=== PATIENT | female | born 1985 | race Caucasian/White ===

== ENCOUNTER 2016-09-13 09:09 | Emergency (ER) | payer BC ==
[~2016-09-13] VITALS: Wt 72.0 kg
[~2016-09-13 09:09] MED LIST: AZIT250T94 PO; BIRTH CONTROL PO; MED4DP PO
--- NOTE | 2016-09-13 11:26 | ERD ---
ER Documentation Chief Complaint Date/Time DATE: 09/13/16 TIME: 11:25 Chief Complaint RUNNY NOSE COUGH X 1 WEEK HPI This is a 30-year-old female presents to the emergency room with her mother for evaluation of a nasal congestion, and a cough productive of green sputum for 1 weeks duration. This patient states that she has had similar symptoms in the past which have been treated with steroids and antibiotics. The patient came to the ER today for evaluation. ROS All systems reviewed and are negative except as per history of present illness. Medications Home Meds Active Scripts Methylprednisolone* (Medrol* DOSE PACK) 4 Mg/Dose-Pack Tab.ds.pk, 4 MG PO . DIRECTED for 7 Days, PACKET Prov:SUBHASH CA PICK UP DRIVER 09/15/15 Azithromycin* (Zithromax*) 250 Mg Tablet, 250 MG PO .ZPACK DIRECTED, #6 TAB TAKE 500 MG (2 TABS) THE FIRST DAY THEN 250 MG (1 TAB) DAYS 2-5 Prov:SUBHASH CA PICK UP DRIVER 09/15/15 Reported Medications [ Control] No Conflict Check, PO 06/04/15 Allergies Allergies: Coded Allergies: No Known Drug Allergy (Verified Allergy, Mild, 09/15/15) PMhx/Soc Medical and Surgical Hx: pt denies Surgical Hx History of Surgery: No Anesthesia Reaction: No Hx Neurological Disorder: No Hx Respiratory Disorders: No Hx Cardiac Disorders: No Hx Psychiatric Problems: No Hx Miscellaneous Medical Probl: Yes (GASTRITIS ) Hx Alcohol Use: Yes (OCCASIONAL) Hx Substance Use: No Hx Tobacco Use: Yes (every few months ) Smoking Status: Light tobacco smoker Physical Exam Vitals Vital Signs Date Time Temp Pulse Resp B/P Pulse Ox O2 Delivery O2 Flow Rate FiO2 09/13/16 09:13 98.0 80 18 134/79 99 Physical Exam Const: No acute distress Head: Atraumatic Eyes: Normal Conjunctiva ENT: Bilateral nasal congestion normal External Ears, Nose and Mouth. Neck: Full range of motion..~ No meningismus. Resp: Clear to auscultation bilaterally Cardio: Regular rate and rhythm, no murmurs Abd: Soft, non tender, non distended. Normal bowel sounds Skin: No petechiae or rashes Back: No midline or flank tenderness Ext: No cyanosis, or edema Neur: Awake and alert Psych: Normal Mood and Affect Procedures/MDM This 30-year-old female presents to the ER for evaluation of bilateral nasal congestion, and a cough productive of green sputum. She states that she has had these symptoms previously last year and they were treated with antibiotics and the prednisone. I do feel the symptoms are viral in nature with only a slight risk of bacterial cause. I advised this patient I will give her a Medrol Dosepak, and a prescription for azithromycin however I instructed her not to fill the azithromycin until 48 hours this past and she has had her symptoms for greater than 7 days. The patient verbalized understanding and is okay the plan of care. Departure Diagnosis: Primary Impression: Acute bronchitis Condition: Stable SINDHU SMITH DO Sep 13, 2016 11:26
[2016-09-13] MEDS ORDERED: MED4DP PO (11:28)
[2016-09-13] MEDS ORDERED: AZIT250T94 PO (11:28)
== END 2016-09-13 11:43 | disposition home or self-care (01) ==
LOC: FTE 09:09
DX: J20.9 Acute bronchitis, unspecified (principal); F17.210 Nicotine dependence, cigarettes, uncomplicated
CPT/HCPCS: 99284

== ENCOUNTER 2016-12-06 12:41 | Emergency (ER) | payer BC ==
[~2016-12-06] VITALS: Ht 162.6 cm; Wt 88.0 kg
[2016-12-06 12:43] VITALS: Ht 162.6 cm; Wt 88.0 kg
[2016-12-06] MEDS ORDERED: ELEC100080 PO (14:55)
[2016-12-06] MEDS ORDERED: ONDA4TAB8 PO (14:55)
[2016-12-06] MEDS ORDERED: DICY10CA60 PO (14:56)
[2016-12-06] MEDS ORDERED: LOPE2CAP PO (14:56)
--- NOTE | 2016-12-06 15:05 | ERD ---
ER Documentation Chief Complaint Date/Time DATE: 12/06/16 TIME: 15:01 Chief Complaint vomiting /diarrhea , abd pain x 3 days HPI This a 31-year-old female who presents to the emergency department today complaining of vomiting and diarrhea for the past 3 days. States she has some crampy abdominal pain. States that she is drinking fluids but not eating much food other than crackers. States that her symptoms have improved in the last day. States she has a history of gastritis. States that she has had some blood on her poop when she wipes however she has a history of hemorrhoids. States that 2 weeks ago she had a stool culture done and has had testing done for H. pylori.. States she is also had an endoscopy and colonoscopy. She is not taking any medication for the vomiting or diarrhea. Denies any fevers or chills. ROS All systems reviewed and are negative except as per history of present illness. Medications Home Meds Active Scripts Loperamide Hcl* (Imodium*) 2 Mg Capsule, 2 MG PO .AFTER EA LOOSE BM Y for DIARRHEA, #8 TAB Prov:DEVENDRA UMANZOR PA-C 12/06/16 Dicyclomine Hcl* (Bentyl*) 10 Mg Capsule, 10 MG PO QID, #30 CAP Prov:DEVENDRA UMANZOR PA-C 12/06/16 Electrolyte,Oral (Pedialyte) 1,000 Ml Solution, 100 ML PO Q6 Y for DIARRHEA, # 1000 ML Prov:DEVENDRA UMANZOR PA-C 12/06/16 Ondansetron Hcl* (Zofran*) 4 Mg Tablet, 4 MG PO Q6H for NAUSEA AND/OR VOMITING, #30 TAB Prov:DEVENDRA UMANZOR PA-C 12/06/16 Azithromycin* (Zithromax*) 250 Mg Tablet, 250 MG PO DAILY for 5 Days, #6 TAB Prov:SINDHU SMITH DO 09/13/16 Methylprednisolone* (Medrol* DOSE PACK) 4 Mg/Dose-Pack Tab.ds.pk, 4 MG PO . DIRECTED for 7 Days, PACKET Prov:SINDHU SMITH DO 09/13/16 Methylprednisolone* (Medrol* DOSE PACK) 4 Mg/Dose-Pack Tab.ds.pk, 4 MG PO . DIRECTED for 7 Days, PACKET Prov:SUBHASH CA NP 09/15/15 Azithromycin* (Zithromax*) 250 Mg Tablet, 250 MG PO .ShannonPACK DIRECTED, #6 TAB TAKE 500 MG (2 TABS) THE FIRST DAY THEN 250 MG (1 TAB) DAYS 2-5 Prov:SUBHASH CA NP 09/15/15 Reported Medications [ Control] No Conflict Check, PO 06/04/15 Allergies Allergies: Coded Allergies: No Known Drug Allergy (Verified Allergy, Mild, 09/15/15) PMhx/Soc History of Surgery: No Anesthesia Reaction: No Hx Neurological Disorder: No Hx Respiratory Disorders: No Hx Cardiac Disorders: No Hx Psychiatric Problems: No Hx Miscellaneous Medical Probl: Yes (GASTRITIS ) Hx Alcohol Use: No Hx Substance Use: No Hx Tobacco Use: No Smoking Status: Never smoker Physical Exam Vitals Vital Signs Date Time Temp Pulse Resp B/P Pulse Ox O2 Delivery O2 Flow Rate FiO2 12/06/16 12:43 99.1 90 16 141/74 98 Physical Exam Const: Pleasant, nontoxic-appearing Head: Atraumatic Eyes: Normal Conjunctiva ENT: Normal External Ears, Nose and Mouth. Neck: Full range of motion..~ No meningismus. Resp: Clear to auscultation bilaterally Cardio: Regular rate and rhythm, no murmurs Abd: Soft, periumbilical tenderness, non distended. Normal bowel sounds. No right lower quadrant pain. No tenderness McBurney's. No left lower quadrant pain. Skin: No petechiae or rashes Neur: Awake and alert Psych: Normal Mood and Affect Procedures/MDM This a 31-year-old female who presents to the emergency department today complaining of vomiting and diarrhea and crampy abdominal pain for the last 3 days. Patient indicates that her symptoms are improving since yesterday. On physical exam patient has no lower abdominal pain. Her tenderness appears to be more in the periumbilical region. I do not feel the patient requires laboratory workup or imaging at this time. Patient did indicate that she has some blood in her poop when she wipes but she does have a history of hemorrhoids. Patient is afebrile and otherwise well-appearing. She is also able to tolerate some oral fluids at this time. She has had no recent travel and have low suspicion for bacterial cause of diarrhea or vomiting. Low suspicion for acute surgical abdomen. Low suspicion for diverticulitis, upper or lower GI bleed. Patient's vital signs are stable and she sitting up in the chair in no acute distress Patient symptoms at this time is consistent with vomiting and diarrhea. Patient was given a prescription for Zofran for home, Bentyl and Pedialyte. I did also give the patient a very short course of Imodium for home however I explained to her that given her history of hemorrhoids and likely constipation I would prefer that she does not take it and only use as needed. Patient was in full understanding. At this time the patient is stable for discharge and outpatient management. Patient should follow up with their PCP in the next 1-2 days. They may return to the emergency department sooner for any persistent or worsening of symptoms. Patient understood and agreed with the plan. Departure Diagnosis: Primary Impression: Vomiting and diarrhea Condition: Fair Patient Instructions: Self-Care for Vomiting and Diarrhea Referrals: your PCP Additional Instructions: Call your primary care doctor TOMORROW for an appointment during the next 1-2 days.See the doctor sooner or return here if your condition worsens before your appointment time. Take Zofran for nausea or vomiting Take Bentyl for diarrhea Take Pedialyte for diarrhea and vomiting and drink plenty of clear fluids Take Imodium only as absolutely needed for diarrhea DEVENDRA UMANZOR PA-C December 06, 2016 15:05
[2016-12-06 15:27] VITALS: BP 131/83; PULSE 93; RESP 16; TEMP 99.3
== END 2016-12-06 15:29 | disposition home or self-care (01) ==
LOC: FTE 12:41
DX: R11.10 Vomiting, unspecified (principal); R19.7 Diarrhea, unspecified
CPT/HCPCS: 99284

== ENCOUNTER 2017-06-17 12:30 | Emergency (ER) | payer BC ==
[~2017-06-17] VITALS: Wt 88.1 kg
[~2017-06-17 12:30] MED LIST changes: +DICY10CA60 PO; +ELEC100080 PO; +LOPE2CAP PO; +ONDA4TAB8 PO
[2017-06-17] MEDS ORDERED: CETI10CA PO (13:34)
[2017-06-17] MEDS ORDERED: FLUT9.9S NASAL (13:34)
[2017-06-17] MEDS ORDERED: GUAI1TBM PO (13:35)
--- NOTE | 2017-06-17 13:41 | ERD ---
ER Documentation Chief Complaint Chief Complaint nasal congestion/cough [id number] HPI This is a 31-year-old female presents the emergency department today complaining of nasal congestion and scratchy throat for the past couple of weeks. Patient states she has also had a cough. States that she does not think that she needs antibiotics. States that she has used a pill and a nasal brain in the past that helped her. Denies any fevers or chills. ROS All systems reviewed and are negative except as per history of present illness. Medications Home Meds Active Scripts Guaifenesin/Dextromethorphan (Mucinex Dm ER 1,200-60 mg Tab) 1 Each Tbmp.12hr, 1 EACH PO BID, #20 TAB Prov:DEVENDRA UMANZOR PA-C 06/17/17 Fluticasone Propionate (Flonase Allergy Relief) 9.9 Ml [place].susp, 2 SPRAY NASAL DAILY, #1 BOTTLE TO EACH NOSTRIL Prov:DEVENDRA UMANZOR PA-C 06/17/17 Cetirizine Hcl* (Zyrtec*) 10 Mg Capsule, 10 MG PO DAILY, #14 TAB.CHEW Prov:DEVENDRA UMANZOR PA-C 06/17/17 Loperamide Hcl* (Imodium*) 2 Mg Capsule, 2 MG PO .AFTER EA LOOSE BM Y for DIARRHEA, #8 TAB Prov:DEVENDRA UMANZOR PA-C 12/06/16 Dicyclomine Hcl* (Bentyl*) 10 Mg Capsule, 10 MG PO QID, #30 CAP Prov:DEVENDRA UMANZOR PA-C 12/06/16 Electrolyte,Oral (Pedialyte) 1,000 Ml Solution, 100 ML PO Q6 Y for DIARRHEA, # 1000 ML Prov:DEVENDRA UMANZOR PA-C 12/06/16 Ondansetron Hcl* (Zofran*) 4 Mg Tablet, 4 MG PO Q6H for NAUSEA AND/OR VOMITING, #30 TAB Prov:DEVENDRA UMANZOR PA-C 12/06/16 Azithromycin* (Zithromax*) 250 Mg Tablet, 250 MG PO DAILY for 5 Days, #6 TAB Prov:SINDHU SMITH DO 09/13/16 Methylprednisolone* (Medrol* DOSE PACK) 4 Mg/Dose-Pack Tab.ds.pk, 4 MG PO . DIRECTED for 7 Days, PACKET Prov:SINDHU SMITH DO 09/13/16 Methylprednisolone* (Medrol* DOSE PACK) 4 Mg/Dose-Pack Tab.ds.pk, 4 MG PO . DIRECTED for 7 Days, PACKET Prov:SUBHASH CA CUSTODIAL ENGINEER 09/15/15 Azithromycin* (Zithromax*) 250 Mg Tablet, 250 MG PO .ZPACK DIRECTED, #6 TAB TAKE 500 MG (2 TABS) THE FIRST DAY THEN 250 MG (1 TAB) DAYS 2-5 Prov:SUBHASH CA CUSTODIAL ENGINEER 09/15/15 Reported Medications [ Control] No Conflict Check, PO 06/04/15 Allergies Allergies: Coded Allergies: No Known Drug Allergy (Verified Allergy, Mild, 09/15/15) PMhx/Soc History of Surgery: No Anesthesia Reaction: No Hx Neurological Disorder: No Hx Respiratory Disorders: No Hx Cardiac Disorders: No Hx Psychiatric Problems: No Hx Miscellaneous Medical Probl: Yes (GASTRITIS ) Hx Alcohol Use: No Hx Substance Use: No Hx Tobacco Use: No Physical Exam Vitals Vital Signs Date Time Temp Pulse Resp B/P Pulse Ox O2 Delivery O2 Flow Rate FiO2 06/17/17 12:38 98.8 98 12 125/76 100 Physical Exam Const: NAD Head: Atraumatic Eyes: Normal Conjunctiva ENT: Ears TMs normal nose no drainage. Throat with mild erythema drainage posterior pharynx Neck: Full range of motion..~ No meningismus. Resp: Clear to auscultation bilaterally. No absent breath sounds. No wheezing. Cardio: Regular rate and rhythm, no murmurs Abd: Soft, non tender, non distended. Normal bowel sounds Skin: No petechiae or rashes Back: No midline or flank tenderness Ext: No cyanosis, or edema Neur: Awake and alert Psych: Normal Mood and Affect Procedures/MDM This a 31-year-old female who presents the emergency department today complaining of signs and symptoms consistent with allergic rhinitis versus viral URI. Patient is afebrile and otherwise well-appearing. Her oxygen saturation is 100%. Do not feel that she requires a chest x-ray or further workup at this time. Low suspicion for pneumonia, PE, abscess, pleural effusion , pneumothorax, sinusitis, sepsis, severe acute bacterial infection Patient was given a prescription for Mucinex DM, Flonase, Zyrtec and nasal saline. At this time the patient is stable for discharge and outpatient management. Patient should follow up with their PCP in the next 1-2 days. They may return to the emergency department sooner for any persistent or worsening of symptoms. Patient understood and agreed with the plan. Departure Diagnosis: Primary Impression: Allergic rhinitis Chronicity: unspecified Allergic rhinitis trigger: unspecified Allergic rhinitis seasonality: unspecified seasonality Qualified Code: J30.9 - Allergic rhinitis, unspecified chronicity, unspecified seasonality, unspecified trigger Additional Impression: Cough Condition: Fair Patient Instructions: Preventing Common Respiratory Infections, Allergic Rhinitis Referrals: your PCP Additional Instructions: Call your primary care doctor TOMORROW for an appointment during the next 1-2 days.See the doctor sooner or return here if your condition worsens before your appointment time. Take Mucinex for cough and congestion. Take Flonase and Zyrtec as prescribed for allergy related symptoms. drink plenty of fluids and keep the head of your bed elevated. DEVENDRA UMANZOR PA-C Jun 17, 2017 13:41
[2017-06-17] MEDS ORDERED: SODI126M NASAL (13:42)
[2017-06-17 13:56] VITALS: BP 120/68; PULSE 65; RESP 16
== END 2017-06-17 13:57 | disposition home or self-care (01) ==
LOC: FTE 12:30
DX: J30.9 Allergic rhinitis, unspecified (principal)
CPT/HCPCS: 99283

== ENCOUNTER 2017-08-29 07:26 | Emergency (ER) | END 2017-08-29 09:05 | disposition home or self-care (01) ==

== ENCOUNTER 2017-09-04 19:40 | Emergency (ER) | END 2017-09-05 02:29 | disposition home or self-care (01) ==

== ENCOUNTER 2017-10-17 12:19 | Emergency (ER) | END 2017-10-17 13:42 | disposition home or self-care (01) ==

== ENCOUNTER 2017-11-14 18:10 | Emergency (ER) | END 2017-11-14 20:08 | disposition home or self-care (01) ==

== ENCOUNTER 2017-12-23 18:29 | Emergency (ER) | END 2017-12-23 20:15 | disposition home or self-care (01) ==

== ENCOUNTER 2018-01-22 10:16 | Emergency (ER) | END 2018-01-22 11:39 | disposition home or self-care (01) ==

== ENCOUNTER 2018-03-26 15:15 | Emergency (ER) | END 2018-03-26 18:09 | disposition home or self-care (01) ==

== ENCOUNTER 2018-04-12 10:13 | Emergency (ER) | END 2018-04-12 14:16 | disposition home or self-care (01) ==

== ENCOUNTER 2018-06-30 18:35 | Emergency (ER) | END 2018-06-30 23:10 | disposition home or self-care (01) ==

== ENCOUNTER 2018-11-06 14:32 | Emergency (ER) | payer BC ==
[~2018-11-06] VITALS: Ht 157.5 cm; Wt 84.3 kg
[~2018-11-06 14:32] MED LIST changes: +AZIT250T PO; -AZIT250T94 PO; +BEN25 PO; +CEPH-443 PO; +CETI10CA PO; +CIPR500T4 PO; +DICY10CA40 PO; -DICY10CA60 PO; +FEXO180T61 PO; +FLUC150T PO; +FLUT9.9S NASAL; +GUAI1TBM12 PO; +MUPI22OI2 TOP; +NITR-58 PO; +ONDA4TAB14 PO; +PHEN-537 PO; +SODI126M NASAL
[2018-11-06 14:34] VITALS: BP 134/82; PULSE 95; RESP 18; Ht 157.5 cm; Wt 84.3 kg
--- NOTE | 2018-11-06 15:34 | ERD ---
ER Documentation Chief Complaint Chief Complaint C/O VAGINAL DISCOMFORT X 4 DAYS. HPI 32-year-old female with past medical history of gastritis who presents with complaint of vaginal discomfort and irritation for 4 days. States she has a burning sensation to the external genitalia similar to previous episodes when she had reactions to materials or creams. She denies any vaginal discharge or bleeding. LMP on September 19, reported as normal. Has a history of herpes 5 years ago treated without recurrence. Currently is not sexually active and denies at risk behaviors. She is otherwise without symptoms. ROS All systems reviewed and are negative except as per history of present illness. Medications Home Meds Active Scripts Cephalexin* (Keflex*) 500 Mg Capsule, 500 MG PO TID for 7 Days, CAP Prov:JOHNATHAN GUILLEN MD 07/04/18 Ondansetron (Ondansetron Odt) 4 Mg Tab.rapdis, 4 MG PO Q6H PRN for NAUSEA AND/OR VOMITING, #30 TAB Prov:KAVON MORA DO 04/12/18 Fluconazole* (Diflucan*) 150 Mg Tablet, 150 MG PO ONCE, #2 TAB once tab now, one tab in one week of symptoms persist Prov:KAVON MORA DO 04/12/18 Nitrofurantoin Monohyd Macrocr* (Macrobid*) 100 Mg Capsr, 100 MG PO BID for 5 Days, #10 CAP Prov:KAVON MORA DO 04/12/18 Mupirocin* (Bactroban*) 2% -22 Gram Oint...g., 1 APPLIC TOP BID for 7 Days, EA Prov:JOHNATHAN GUILLEN MD 01/22/18 Fluconazole* (Diflucan*) 150 Mg Tablet, 150 MG PO ONCE, #1 TAB Prov:JAMAL RANDALL 12/23/17 Cephalexin* (Keflex*) 500 Mg Capsule, 500 MG PO BID for 7 Days, CAP Prov:JAMAL RANDALL 12/23/17 Fluconazole* (Diflucan*) 150 Mg Tablet, 150 MG PO ONCE, #1 TAB Prov:NIKKI IRBY PA-C 11/14/17 Fluconazole* (Diflucan*) 150 Mg Tablet, 150 MG PO ONCE, #1 TAB Prov:SINDHU SMITH DO 10/17/17 Ciprofloxacin Hcl* (Ciprofloxacin Hcl*) 500 Mg Tablet, 500 MG PO BID for 10 Days, TAB Prov:JIMENEZSINDHU ELENA 10/17/17 Phenazopyridine Hcl* (Pyridium*) 100 Mg Tab, 100 MG PO TID PRN for URINARY PAIN, #8 TAB Prov:LIZBETH MULLIGAN PA-C 09/05/17 Cephalexin* (Keflex*) 500 Mg Capsule, 500 MG PO QID for 7 Days, CAP Prov:LIZBETH MULLIGAN PA-C 09/05/17 Fluticasone Propionate (Flonase Allergy Relief) 9.9 Ml [place].susp, 2 SPRAY NASAL DAILY, #1 BOTTLE TO EACH NOSTRIL Prov:KAROL RANDALLKATRIN Rivero 08/29/17 Methylprednisolone* (Medrol* DOSE PACK) 4 Mg/Dose-Pack Tab.ds.pk, 4 MG PO . DIRECTED for 5 Days, PACKET Prov:PRAKASHJAMAL WILLIAMSON 08/29/17 Fexofenadine Hcl* (Beth*) 180 Mg Tablet, 180 MG PO DAILY, #30 TAB Prov:PRAKASHJAMAL C 08/29/17 Diphenhydramine Hcl* (Benadryl*) 25 Mg Cap, 25 MG PO Q6, #30 CAP Prov:KAROL RANDALLKATRIN Rivero 08/29/17 Sodium Chloride (Saline Nasal Mist) 126 Ml Mist, 2 SPRAY NASAL DAILY, #1 BOTTLE Prov:DEVENRDA UMANZOR PA-C 06/17/17 Guaifenesin/Dextromethorphan (Mucinex Dm ER 1,200-60 mg Tab) 1 Each Tbmp.12hr, 1 EACH PO BID, #20 TAB Prov:DEVENDRA UMANZOR PA-C 06/17/17 Fluticasone Propionate (Flonase Allergy Relief) 9.9 Ml [place].susp, 2 SPRAY NASAL DAILY, #1 BOTTLE TO EACH NOSTRIL Prov:DEVENDRA UMANZOR PA-C 06/17/17 Cetirizine Hcl* (Zyrtec*) 10 Mg Capsule, 10 MG PO DAILY, #14 TAB.CHEW Prov:DEVENDRA UMANZOR PA-C 06/17/17 Loperamide Hcl* (Imodium*) 2 Mg Capsule, 2 MG PO .AFTER EA LOOSE BM PRN for DIARRHEA, #8 TAB Prov:DEVENDRA UMANZOR PA-C 12/06/16 Dicyclomine HCl (Dicyclomine HCl) 10 Mg Capsule, 10 MG PO QID, #30 CAP Prov:DEVENDRA UMANZORC 12/06/16 Electrolyte,Oral (Pedialyte) 1,000 Ml Solution, 100 ML PO Q6 PRN for DIARRHEA, #1000 ML Prov:DEVENDRA UMANZOR-C 12/06/16 Ondansetron Hcl* (Zofran*) 4 Mg Tablet, 4 MG PO Q6H for NAUSEA AND/OR VOMITING, #30 TAB Prov:DEVENDRA UMANZOR PA-C 12/06/16 Azithromycin* (Zithromax*) 250 Mg Tablet, 250 MG PO DAILY for 5 Days, #6 TAB Prov:SINDHU SMITH DO 09/13/16 Methylprednisolone* (Medrol* DOSE PACK) 4 Mg/Dose-Pack Tab.ds.pk, 4 MG PO . DIRECTED for 7 Days, PACKET Prov:SINDHU SMITH DO 09/13/16 Methylprednisolone* (Medrol* DOSE PACK) 4 Mg/Dose-Pack Tab.ds.pk, 4 MG PO . DIRECTED for 7 Days, PACKET Prov:SUBHASH CA NP 09/15/15 Azithromycin* (Zithromax*) 250 Mg Tablet, 250 MG PO .ZPACK DIRECTED, #6 TAB TAKE 500 MG (2 TABS) THE FIRST DAY THEN 250 MG (1 TAB) DAYS 2-5 Prov:SUBHASH CA NP 09/15/15 Reported Medications [ Control] No Conflict Check, PO 06/04/15 Allergies Allergies: Coded Allergies: No Known Drug Allergy (Verified Allergy, Mild, 06/30/18) PMhx/Soc History of Surgery: No Anesthesia Reaction: No Hx Neurological Disorder: No Hx Respiratory Disorders: Yes (Bronchitis) Hx Cardiac Disorders: No Hx Psychiatric Problems: No Hx Miscellaneous Medical Probl: Yes (GASTRITIS ) Hx Alcohol Use: No Hx Substance Use: No Hx Tobacco Use: No FmHx Family History: No diabetes, No coronary disease, No other Physical Exam Vitals Vital Signs Date Temp Pulse Resp B/P (MAP) Pulse Ox O2 O2 Flow FiO2 Time Delivery Rate 11/06/18 99.8 95 18 134/82 99 14:34 (99) Physical Exam I have reviewed the triage vital signs. Const: Well nourished, well developed, appears stated age Eyes: PERRL, no conjunctival injection HENT: NCAT, Neck supple without meningismus CV: RRR, Warm, well-perfused extremities RESP: CTAB, Unlabored respiratory effort GI: soft, non-tender, non-distended, no masses MSK: No gross deformities appreciated Skin: Warm, dry. No rashes Exterior vaginal exam: no discharge noted, area of excoriation distal end of external genitalia, no concerning lesions, no tenderness on palpation Neuro: grossly non focal Psych: Appropriate mood and affect. Results 24 hrs Laboratory Tests Test 11/06/18 15:39 11/06/18 15:43 Urine Color STRAW Urine Clarity CLEAR Urine pH 9.0 Urine Specific Seth 1.008 Urine Ketones NEGATIVE mg/dL Urine Nitrite NEGATIVE mg/dL Urine Bilirubin NEGATIVE mg/dL Urine Urobilinogen NEGATIVE mg/dL Urine Leukocyte Esterase NEGATIVE Roverto/ul Urine Hemoglobin NEGATIVE mg/dL Urine Glucose NEGATIVE mg/dL Urine Total Protein NEGATIVE mg/dl POC Beta HCG, Qualitative NEGATIVE Procedures/MDM 32-year-old female presents with vaginal pain discomfort. Exam significant for small areas of skin irritation excoriation but no finding of concerning lesions. These areas of excoriation unlikely to heal on their own. No lesions consistent with herpetic infection. No vaginal discharge or odor. No reports of vaginal bleeding. Patient reports having very sensitive skin and this may represent such type reaction. She does not have any signs or symptoms warranting emergent treatment or evaluation. She is nontoxic-appearing and otherwise without complaint. I doubt infection warranting antibiotic, antifungal, antiviral treatment. I have instructed patient to do symptomatic treatment and follow-up with her [employer] [facility] as needed. UA unremarkable DISPOSITION PLAN: We discussed follow up with the patient's primary care doctor within 24 to 48 hours. Patient counseled regarding my diagnostic impression and care plan. Prior to discharge all questions answered. Pt agrees with treatment plan and understands strict return precautions. Precautionary instructions provided including instructions to return to the ER if not improving or for any worsening or changing symptoms or concerns. Departure Diagnosis: Primary Impression: Genitourinary symptoms Condition: Stable LEANA CARRERA PA-C Nov 06, 2018 15:34
== END 2018-11-06 16:12 | disposition home or self-care (01) ==
LOC: FTE 14:32
DX: N89.8 Other specified noninflammatory disorders of vagina (principal)
CPT/HCPCS: 81003; 81025; 99283

== ENCOUNTER 2019-01-27 12:37 | Emergency (ER) | payer BC ==
[~2019-01-27] VITALS: Ht 157.5 cm; Wt 82.3 kg
[2019-01-27 12:40] VITALS: BP 135/96; PULSE 81; RESP 12; Ht 157.5 cm; Wt 82.3 kg
[2019-01-27] MEDS ORDERED: AZIT250T PO (13:07)
[2019-01-27] MEDS ORDERED: D-ME473S2 PO (13:07)
[2019-01-27] MEDS ORDERED: FLUC150T PO (13:07)
[2019-01-27] MEDS ORDERED: FAMO20TA18 PO (13:07)
--- NOTE | 2019-01-27 13:10 | ERD ---
ER Documentation Chief Complaint Chief Complaint productive cough, sore throat x1week HPI 33-year-old female presents with productive cough over the last week. She has a history of gastritis and complains of mild epigastric pain. She states that she has white-green productive mucus. Denies fevers, history of asthma, vomiting, diarrhea. He has sore throat resolves after the morning. Denies sick contacts. ROS All systems reviewed and are negative except as per history of present illness. Medications Home Meds Active Scripts Fluconazole* (Diflucan*) 150 Mg Tablet, 150 MG PO ONCE, #1 TAB Prov:BEVERLY PRINCE MD 01/27/19 Azithromycin* (Zithromax*) 250 Mg Tablet, 250 MG PO .ZPACK DIRECTED, #6 TAB TAKE 500 MG (2 TABS) THE FIRST DAY THEN 250 MG (1 TAB) DAYS 2-5 Prov:BEVERLY PRINCE MD 01/27/19 Famotidine* (Famotidine*) 20 Mg Tablet, 20 MG PO DAILY, #15 TAB Prov:BEVERLY PRINCE MD 01/27/19 Dextromethorphan Hb-Promethazine Hcl* (Promethazine DM* Syrup) 473 Ml Syrup, 5 ML PO Q6 PRN for COUGH for 5 Days, ML Prov:BEVERLY PRINCE MD 01/27/19 Cephalexin* (Keflex*) 500 Mg Capsule, 500 MG PO TID for 7 Days, CAP Prov:JOHNATHAN GUILLEN MD 07/04/18 Ondansetron (Ondansetron Odt) 4 Mg Tab.rapdis, 4 MG PO Q6H PRN for NAUSEA AND/OR VOMITING, #30 TAB Prov:KAVON MORA DO 04/12/18 Fluconazole* (Diflucan*) 150 Mg Tablet, 150 MG PO ONCE, #2 TAB once tab now, one tab in one week of symptoms persist Prov:KAVON MORA DO 04/12/18 Nitrofurantoin Monohyd Macrocr* (Macrobid*) 100 Mg Capsr, 100 MG PO BID for 5 Days, #10 CAP Prov:KAVON MORA DO 04/12/18 Mupirocin* (Bactroban*) 2% -22 Gram Oint...g., 1 APPLIC TOP BID for 7 Days, EA Prov:LERMA-GHOSH,JOHNATHAN MD 01/22/18 Fluconazole* (Diflucan*) 150 Mg Tablet, 150 MG PO ONCE, #1 TAB Prov:JAMLA RANDALL 12/23/17 Cephalexin* (Keflex*) 500 Mg Capsule, 500 MG PO BID for 7 Days, CAP Prov:JAMAL RANDALL 12/23/17 Fluconazole* (Diflucan*) 150 Mg Tablet, 150 MG PO ONCE, #1 TAB Prov:NIKKI IRBY PA-C 11/14/17 Fluconazole* (Diflucan*) 150 Mg Tablet, 150 MG PO ONCE, #1 TAB Prov:SINDHU SMITH DO 10/17/17 Ciprofloxacin Hcl* (Ciprofloxacin Hcl*) 500 Mg Tablet, 500 MG PO BID for 10 Days, TAB Prov:SINDHU SMITH DO 10/17/17 Phenazopyridine Hcl* (Pyridium*) 100 Mg Tab, 100 MG PO TID PRN for URINARY PAIN, #8 TAB Prov:LIZBETH MULLIGAN PA-C 09/05/17 Cephalexin* (Keflex*) 500 Mg Capsule, 500 MG PO QID for 7 Days, CAP Prov:LIZBETH MULLIGAN PA-C 09/05/17 Fluticasone Propionate (Flonase Allergy Relief) 9.9 Ml Watkins.susp, 2 SPRAY NASAL DAILY, #1 BOTTLE TO EACH NOSTRIL Prov:JAMAL RANDALL 08/29/17 Methylprednisolone* (Medrol* DOSE PACK) 4 Mg/Dose-Pack Tab.ds.pk, 4 MG PO . DIRECTED for 5 Days, PACKET Prov:JAMAL RANDALL 08/29/17 Fexofenadine Hcl* (Beth*) 180 Mg Tablet, 180 MG PO DAILY, #30 TAB Prov:JAMAL RANDALL 08/29/17 Diphenhydramine Hcl* (Benadryl*) 25 Mg Cap, 25 MG PO Q6, #30 CAP Prov:JAMAL RANDALL 08/29/17 Sodium Chloride (Saline Nasal Mist) 126 Ml Mist, 2 SPRAY NASAL DAILY, #1 BOTTLE Prov:DEVENDRA UMANZOR PA-C 06/17/17 Guaifenesin/Dextromethorphan (Mucinex Dm ER 1,200-60 mg Tab) 1 Each Tbmp.12hr, 1 EACH PO BID, #20 TAB Prov:DEVENDRA UMANZOR-C 06/17/17 Fluticasone Propionate (Flonase Allergy Relief) 9.9 Ml Watkins.susp, 2 SPRAY NASAL DAILY, #1 BOTTLE TO EACH NOSTRIL Prov:DEVENDRA UMANZOR-C 06/17/17 Cetirizine Hcl* (Zyrtec*) 10 Mg Capsule, 10 MG PO DAILY, #14 TAB.CHEW Prov:DEVENDRA UMANZOR-C 06/17/17 Loperamide Hcl* (Imodium*) 2 Mg Capsule, 2 MG PO .AFTER EA LOOSE BM PRN for DIARRHEA, #8 TAB Prov:DEVENDRA UMANZOR-C 12/06/16 Dicyclomine HCl (Dicyclomine HCl) 10 Mg Capsule, 10 MG PO QID, #30 CAP Prov:DEVENDRA UMANZOR-C 12/06/16 Electrolyte,Oral (Pedialyte) 1,000 Ml Solution, 100 ML PO Q6 PRN for DIARRHEA, #1000 ML Prov:DEVENDRA UMANZOR-C 12/06/16 Ondansetron Hcl* (Zofran*) 4 Mg Tablet, 4 MG PO Q6H for NAUSEA AND/OR VOMITING, #30 TAB Prov:DEVENDRA UMANZOR PA-C 12/06/16 Azithromycin* (Zithromax*) 250 Mg Tablet, 250 MG PO DAILY for 5 Days, #6 TAB Prov:SINDHU SMITH DO 09/13/16 Methylprednisolone* (Medrol* DOSE PACK) 4 Mg/Dose-Pack Tab.ds.pk, 4 MG PO . DIRECTED for 7 Days, PACKET Prov:SINDHU SMITH DO 09/13/16 Methylprednisolone* (Medrol* DOSE PACK) 4 Mg/Dose-Pack Tab.ds.pk, 4 MG PO . DIRECTED for 7 Days, PACKET Prov:SUBHASH CA NP 09/15/15 Azithromycin* (Zithromax*) 250 Mg Tablet, 250 MG PO .ZPACK DIRECTED, #6 TAB TAKE 500 MG (2 TABS) THE FIRST DAY THEN 250 MG (1 TAB) DAYS 2-5 Prov:SUBHASH CA NP 09/15/15 Reported Medications [ Control] No Conflict Check, PO 06/04/15 Allergies Allergies: Coded Allergies: No Known Drug Allergy (Verified Allergy, Mild, 06/30/18) PMhx/Soc History of Surgery: No Anesthesia Reaction: No Hx Neurological Disorder: No Hx Respiratory Disorders: Yes (Bronchitis) Hx Cardiac Disorders: No Hx Psychiatric Problems: No Hx Miscellaneous Medical Probl: Yes (GASTRITIS ) Hx Alcohol Use: No Hx Substance Use: No Hx Tobacco Use: No FmHx Family History: No diabetes, No coronary disease, No other Physical Exam Vitals Vital Signs Date Temp Pulse Resp B/P (MAP) Pulse Ox O2 O2 Flow FiO2 Time Delivery Rate 01/27/19 98.6 81 12 135/96 97 12:40 (109) Physical Exam Const: No acute distress Head: Atraumatic Eyes: Normal Conjunctiva ENT: Normal External Ears, Nose and Mouth. TMs and oropharynx normal. Neck: Full range of motion. No meningismus. Resp: Clear to auscultation bilaterally. coarse cough without rales, wheezing or retractions. Cardio: Regular rate and rhythm, no murmurs Abd: Soft, non tender, non distended. Normal bowel sounds Skin: No petechiae or rashes Back: No midline or flank tenderness Ext: No cyanosis, or edema Neur: Awake and alert Psych: Normal Mood and Affect Procedures/MDM Patient presents with URI symptoms over the last week. She has no signs of hypoxemia, rest distress, signs of pneumonia exam. She may have a lingering viral illness although given the duration we will give prescription of promethazine, Pepcid for history of gastritis, and a prescription of Zithromax with instructions to hold for 2 to 4 days and allow what may be a viral illness to resolve. She may take for worsening productive cough or persistent symptoms. She should otherwise recheck sooner for new worsening symptoms or with her primary care doctor. The patient was stable with no new complaints during the ER course. Clinically, there is no current evidence to suggest meningitis, sepsis, acute abdomen, pneumonia, stroke, acute coronary syndrome, pulmonary embolism, aortic dissection or any other emergent condition appearing to require further evaluation or hospitalization. Patient counseled regarding my diagnostic impression and care plan. Prior to discharge all questions answered. Pt agrees with treatment plan and understands strict return precautions. Pt is instructed to follow up with primary care provider within 24-48 hours. Precautionary instructions provided including instructions to return to the ER if not improving or for any worsening or changing symptoms or concerns. Disclaimer: Inadvertent spelling and grammatical errors are likely due to EHR/dictation software use and do not reflect on the overall quality of patient care. Also, please note that the electronic time recorded on this note does not necessarily reflect the actual time of the patient encounter. Departure Diagnosis: Primary Impression: Cough Condition: Stable Patient Instructions: Bronchitis, Antiobiotic Treatment (Adult), Uri, Viral, No Abx (Adult) Referrals: NO PRIMARY,CARE PHYSICIAN (PCP) Additional Instructions: Okay to hold antibiotics 2 to 4 days as may be viral illness continuing to improve. Take for productive cough for persistent symptoms. Recheck otherwise for new or worsening symptoms. BEVERLY PRINCE MD Jan 27, 2019 13:10
== END 2019-01-27 13:39 | disposition home or self-care (01) ==
LOC: FTE 12:37
DX: R05 Cough (principal)
CPT/HCPCS: 99283